=== PATIENT | female | born 1975 | race Caucasian/White ===

== ENCOUNTER 2016-05-25 13:11 | Emergency (ER) | payer BC ==
[2016-05-25] MEDS ORDERED: KETOROLAC 30 MG/ML VIAL ONE (13:48)
[2016-05-25] MEDS ORDERED: MORPHINE 2 MG/ML SYR ONE (15:00)
== END 2016-05-25 16:52 | disposition home or self-care (01) ==
LOC: ER 13:11
DX: R07.2 Precordial pain (principal); Z79.899 Other long term (current) drug therapy; F17.210 Nicotine dependence, cigarettes, uncomplicated
CPT/HCPCS: 36415; 71010; 80053; 82550; 83735; 84484; 85025; 85379; 85610; 85730; 93005; 96374; 96375